=== PATIENT | female | born 1980 | race Two or more races ===

== ENCOUNTER 2016-06-06 10:42 | Emergency (ER) | payer OTHER ==
[~2016-06-06] VITALS: Ht 167.6 cm; Wt 55.8 kg
[2016-06-06] MEDS ORDERED: Tylenol #3 tab (300mg/30mg) ORAL ONE (11:15)
[2016-06-06] MEDS ORDERED: Albuterol ud Inhalation HHN ONE (11:15)
[2016-06-06 11:27] VITALS: BP 119/80
[2016-06-06] MEDS: LR 1000ml 1,000 ML IV STA ×2 (12:25→13:30)
[2016-06-06 12:37] VITALS: BP 72/47
[2016-06-06 13:07] VITALS: BP 76/41
[2016-06-06 13:41] VITALS: BP 86/62
[2016-06-06] MEDS ORDERED: ACETAMINOPHEN-1 EAC1 ORAL (13:50)
[2016-06-06] MEDS ORDERED: VENTOLIN HFA18 GM INH (13:50)
--- NOTE | 2016-06-06 14:28 | Emergency Room Report ---
History of Present Illness General Chief Complaint: Upper Respiratory Illness Source: Patient Present Illness HPI 35 YO F visiting from [place] with 1 month left sided rib pain, brought in by lots of coughing. Coughing worse at night, non-productive. No assoc chest pain, fever/chills, history of asthma/COPD. Doesnt take any medications. Has no known PMHx. Taking OTC cough syrup without much improvement. Denies leg pain/ swelling, OCP, history of DVT/PE. Allergies: Coded Allergies: PENICILLINS (Verified Allergy, Unknown, 06/06/16) Patient History Past Medical History: none Past Surgical History: none Pertinent Family History: none Social History: Denies: alcohol use, drug use, smoking Last Menstrual Period: 06/01/2016 Now: No : 0 Para: 0 Immunizations: UTD Reviewed Nursing Documentation: PMH: Agreed, PSxH: Agreed Nursing Documentation-PMH Past Medical History: No Stated History Review of Systems All Other Systems: negative except mentioned in HPI Physical Exam Vital Signs Date Time Temp Pulse Resp B/P Pulse Ox O2 Delivery O2 Flow Rate FiO2 06/06/16 10:58 98.6 82 16 119/80 97 Room Air Sp02 EP Interpretation: reviewed, normal General Appearance: normal inspection, well appearing, no apparent distress, alert, GCS 15, non-toxic Head: normocephalic, atraumatic Eyes: bilateral eye EOMI, bilateral eye PERRL ENT: normal ENT inspection, hearing grossly normal, normal voice Neck: normal inspection, full range of motion, supple, no bony tend Respiratory: normal inspection, lungs clear, normal breath sounds, no rhonchi, no respiratory distress, no retraction, no accessory muscle use, no wheezing, speaking full sentences, other - Significant ttp to posterior left lower rib cage. No palpable deformity Cardiovascular #1: regular rate, rhythm, no edema Gastrointestinal: normal inspection, normal bowel sounds, non tender, soft, no guarding, no hernia Genitourinary: no CVA tenderness Musculoskeletal: normal inspection, back normal, normal range of motion, Oscar' s Sign negative Neurologic: normal inspection, alert, oriented x3, responsive, supervisor stone III-XII nml as tested, motor strength/tone normal, speech normal Psychiatric: normal inspection, judgement/insight normal, mood/affect normal Skin: normal inspection, normal color, no rash Lymphatic: normal inspection Medical Decision Making Diagnostic Impression: Primary Impression: Rib pain on left side ER Course 35 YO F with pleuritic type chest pain for 1 month. Worse with coughing. VSS. Afebrile. Lungs CTAB Palpable rib ttp CXR and rib series negative for occult fx, PNA, PTX 2x Tylenol with codeine given and Albuterol neb with improvement in symptoms. Pain resolves Patient feels much better Rx T#3, albuterol neb Follow up with PMD Chest X-Ray Diagnostic Results EP Interpretation: Yes Findings: no consolidation Number of Views: 1 Other Impression left rib series 3 views no acute fx, dislocation, soft tissue swelling or PTX Last Vital Signs Date Time Temp Pulse Resp B/P Pulse Ox O2 Delivery O2 Flow Rate FiO2 06/06/16 13:41 6 11 86/62 98 Room Air 06/06/16 12:31 98.6 Status: improved Disposition: HOME, SELF-CARE Condition: Improved Scripts Albuterol Sulfate (VENTOLIN HFA) 18 Gm Hfa.aer.ad 1 PUFF INH EVERY 6 HOURS for chest tightness, #18 GM 0 Refills Prov: PERI MORELOS M.D. 06/06/16 Acetaminophen With Codeine (T#3) (TYLENOL #3 TAB*) Y Tab 1 TAB ORAL QHS Y for For Pain, #20 TAB Prov: PERI MORELOS M.D. 06/06/16 Patient Instructions: Upper Respiratory Infection, Adult, Costochondritis Additional Instructions: - Use albuterol inhaler during the day for cough, chest tightness - Take ONE tylenol with codeine at night for cough or pain - Follow up with your doctor in [place] when you go home - Return to ER for worsening chest pain or shortness of breath PERI MORELOS M.D. Jun 06, 2016 14:28
[2016-06-06 14:48] VITALS: BP 95/56
[2016-06-06 14:49] VITALS: BP 95/56
--- NOTE | 2016-06-06 16:04 | Diagnostic Imaging Report ---
Indication: Chest Pain Comparison: None A single view chest radiograph was obtained. Findings: Cardiomediastinal appearance is within normal limits for age. Pulmonary vascularity is appropriate. The diaphragmatic contour is smooth and costophrenic angles are sharp. No pleural effusions are identified. The bones are unremarkable. Impression: No acute findings
--- NOTE | 2016-06-06 16:04 | Diagnostic Imaging Report ---
Indication: Trauma. Comparison: None Findings: 4 views of the left chest wall was obtained for evaluation of the ribs. Bony mineralization appears normal. There is no acute fracture identified. There is no soft tissue swelling demonstrated. The lung is essentially clear. The costophrenic angle is sharp. Other osseous structures visualized are unremarkable. Impression: Negative unilateral rib series
== END 2016-06-06 14:51 | disposition home or self-care (01) ==
LOC: EMR 11:19
DX: R07.81 Pleurodynia (principal); R05 Cough; Z88.0 Allergy status to penicillin
CPT/HCPCS: 71010; 94640; 94664; 96360